=== PATIENT | female | born 2000 | race Caucasian/White ===

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

== ENCOUNTER 2019-01-06 09:27 | Day surgery (SDC) | payer OTHER ==
[~2019-01-06] VITALS: Ht 149.9 cm; Wt 54.4 kg
[2019-01-06] MEDS ORDERED: MIDAZOLAM 2 MG/2 ML VIAL ONE ×3 (10:36→11:16)
[2019-01-06] MEDS ORDERED: fentaNYL 0.05 MG/ML VIAL ONE (10:36)
[2019-01-06] MEDS ORDERED: MIDAZOLAM 2 MG/2 ML VIAL IVP ONE (13:40)
== END 2019-01-06 12:25 | disposition home or self-care (01) ==
LOC: MDS 09:27 → MMU 09:28 → MDS 12:25
PROVIDERS: ATTEND Internal Medicine Gastroenterology
DX: K21.0 Gastro-esophageal reflux disease with esophagitis (principal); K44.9 Diaphragmatic hernia without obstruction or gangrene; K31.89 Other diseases of stomach and duodenum; Z87.440 Personal history of urinary (tract) infections; Z87.442 Personal history of urinary calculi
CPT/HCPCS: 43235; 81025; J2250; J7030; J3010

== ENCOUNTER 2019-02-08 05:45 | Emergency (ER) | payer OTHER ==
[~2019-02-08] VITALS: Ht 144.8 cm; Wt 54.4 kg
[2019-02-08 05:55] VITALS: BP 116/59
--- NOTE | 2019-02-08 05:55 | NUR ---
PT TAKEN TO BED 8
--- NOTE | 2019-02-08 06:00 | NUR ---
PT BIB SELF C/O NAUSEA/VOMITING X4 DAYS; SHARP ABDOMINAL PAIN, 10/10; +TENDERNESS UPON PALPATION THROUGH OUT ABD; +APPETITE CHANGES; ACTIVE BOWEL SOUNDS THROUGH OUT. PT VOMITED 1 TIME IN LOBBY. PT IN GOWN; IN BED, BED IN LOWER LOCKED POSITION, BEDRAILS UP X1. PENDING ERMD EVAL. PMH: DENIES
--- NOTE | 2019-02-08 06:05 | NUR ---
DR. YOUSIF AT BEDSIDE.
[2019-02-08] MEDS ORDERED: ONDANSETRON 4 MG/2 ML VIAL IVP ONE (06:15)
[2019-02-08] MEDS ORDERED: KETOROLAC 30 MG/ML VIAL IVP ONE (06:15)
[2019-02-08] MEDS ORDERED: NACL 0.9% 1,000 ML IV ONE ×2 (06:15→08:05)
--- NOTE | 2019-02-08 06:20 | NUR ---
IV START: L AC 20G, FLUSHED WELL W/O RESISTANCE, NO SWELLING, REDNESS OR NOTED PAIN BY PT. PT TOLERATED WELL. --LABS DRAWN BY RN AT TIME OF IV START, AND SENT W/ DOG SITTER.
[2019-02-08 06:32] LABS: BASOPHILS % (AUTO) 0.4 % (0.0-2.0); EOSINOPHILS # (AUTO) 0.1 K/uL (0-0.4); EOSINOPHILS % (AUTO) 0.9 % (0.0-4.0); HEMATOCRIT 37.9 % (36-48); HEMOGLOBIN 12.6 g/dL (12.0-16.0); LYMPHOCYTES # (AUTO) 2.1 K/uL (2.5-16.5); LYMPHOCYTES % (AUTO) 18.1 % (20.5-51.1); MEAN CORPUSCULAR HEMOGLOBIN 31 pg (27-31); MEAN CORPUSCULAR HGB CONC 33 g/dL (33-37); MEAN CORPUSCULAR VOLUME 91.9 fL (80-94); MONOCYTES # (AUTO) 0.8 K/uL (0.8-1.0); MONOCYTES % (AUTO) 6.9 % (1.7-9.3); NEUTROPHILS # (AUTO) 8.7 K/uL (1.8-7.7); NEUTROPHILS % (AUTO) 73.7 % (42.2-75.2); PLATELET COUNT (AUTO) 246 K/uL (140-450); RED BLOOD CELL COUNT(AUTO) 4.12 MIL/uL (4.20-5.40); RED CELL DISTRIBUTION WIDTH 14.7 % (11.6-13.7); WHITE BLOOD COUNT (AUTO) 11.8 K/uL (4.5-11.0)
--- NOTE | 2019-02-08 06:35 | NUR ---
Ultrasound at bedside.
[2019-02-08 06:55] LABS: ANION GAP 15.6 (8-16); CARBON DIOXIDE 24.1 mmol/L (21-32); CREATININE 0.8 mg/dL (0.6-1.3); POTASSIUM 3.7 mmol/L (3.5-5.1); TOTAL BILIRUBIN 0.8 mg/dL (0.0-1.0)
--- NOTE | 2019-02-08 07:18 | NUR ---
PT UP FOR D/C PT BP 86/45, ERMD AWARE. HOLD AND MONITOR PT AT THIS TIME.
--- NOTE | 2019-02-08 07:31 | NUR ---
REPORT RECIEVED FROM MADDIE BHARDWAJ. PT BP 88/42. WILL CONTINUE TO MONITOR PT BP PER DR PENALOZA.
--- NOTE | 2019-02-08 07:45 | NUR ---
PT BP CONTINUES TO BE LOW. BP NOW 83/49. DR JARA AT RAPID RESPONSE, STARTED PT ON 1 L NS.
--- NOTE | 2019-02-08 08:03 | NUR ---
BP NOW 94/55
[2019-02-08 08:12] VITALS: BP 104/61
--- NOTE | 2019-02-08 08:12 | NUR ---
BP ON DISCHARGE 104/61
[2019-02-08 08:29] LABS: APPEARANCE,URINE YELLOW (CLEAR); COLOR,URINE CLEAR (YELLOW)
[2019-02-08 08:30] LABS: BILIRUBIN,URINE NEGATIVE (NEGATIVE); BLOOD, URINE 1+ (NEGATIVE); LEUKOCYTE ESTERASE ,URINE NEGATIVE (NEGATIVE); NITRITE, URINE NEGATIVE (NEGATIVE); UGLUCOSE NEGATIVE (NEGATIVE)
[2019-02-08 08:43] LABS: WBC,URINE 0-5 /HPF (0-5)
== END 2019-02-08 08:12 | disposition home or self-care (01) ==
LOC: MED 05:45
DX: K29.70 Gastritis, unspecified, without bleeding (principal); K21.9 Gastro-esophageal reflux disease without esophagitis
CPT/HCPCS: 36415; 76705; 80053; 81001; 81025; 83690; 85025; 96361; 96374; 96375; 99284; J1885; J2405; J7030; Q0092

== ENCOUNTER 2019-05-01 13:29 | Emergency (ER) | payer OTHER ==
[~2019-05-01] VITALS: Ht 144.8 cm; Wt 53.2 kg
[2019-05-01 13:47] VITALS: BP 126/59
[2019-05-01] MEDS ORDERED: ONDANSETRON 4 MG/2 ML VIAL IVP ONE (14:20)
[2019-05-01] MEDS ORDERED: NACL 0.9% 1,000 ML IV SCH (14:39)
[2019-05-01] MEDS ORDERED: MORPHINE SULFATE 2 MG/ML SYR IVP ONE (14:40)
[2019-05-01 15:05] LABS: BASOPHILS % (AUTO) 0.2 % (0.0-2.0); EOSINOPHILS % (AUTO) 0.2 % (0.0-4.0); HEMATOCRIT 40.1 % (36-48); HEMOGLOBIN 13.5 g/dL (12.0-16.0); LYMPHOCYTES # (AUTO) 0.9 K/uL (2.5-16.5); LYMPHOCYTES % (AUTO) 9.4 % (20.5-51.1); MEAN CORPUSCULAR HEMOGLOBIN 31 pg (27-31); MEAN CORPUSCULAR HGB CONC 34 g/dL (33-37); MEAN CORPUSCULAR VOLUME 91.2 fL (80-94); MONOCYTES # (AUTO) 0.5 K/uL (0.8-1.0); MONOCYTES % (AUTO) 4.8 % (1.7-9.3); NEUTROPHILS # (AUTO) 8.5 K/uL (1.8-7.7); NEUTROPHILS % (AUTO) 85.4 % (42.2-75.2); PLATELET COUNT (AUTO) 304 K/uL (140-450); RED CELL DISTRIBUTION WIDTH 13.8 % (11.6-13.7)
[2019-05-01 15:23] LABS: ANION GAP 18.7 (8-16); CARBON DIOXIDE 19.6 mmol/L (21-32); CREATININE 0.8 mg/dL (0.6-1.3); POTASSIUM 3.3 mmol/L (3.5-5.1)
[2019-05-01 15:44] LABS: TOTAL BILIRUBIN 1.2 mg/dL (0.0-1.0)
[2019-05-01] MEDS ORDERED: MORPHINE SULFATE 4 MG/ML SYR IVP ONE (16:00)
[2019-05-01 17:25] LABS: APPEARANCE,URINE CLEAR (CLEAR); BILIRUBIN,URINE NEGATIVE (NEGATIVE); BLOOD, URINE NEGATIVE (NEGATIVE); COLOR,URINE YELLOW (YELLOW); LEUKOCYTE ESTERASE ,URINE NEGATIVE (NEGATIVE); NITRITE, URINE NEGATIVE (NEGATIVE); PH,URINE 7.5 (5.0-9.0); UGLUCOSE NEGATIVE (NEGATIVE)
[2019-05-01 17:39] LABS: RBC,URINE 0-5 /HPF (0-5); WBC,URINE 0-5 /HPF (0-5)
[2019-05-01 17:59] VITALS: BP 103/46
== END 2019-05-01 17:59 | disposition home or self-care (01) ==
LOC: MED 13:29
DX: O21.8 Other vomiting complicating pregnancy (principal); O26.891 Other specified pregnancy related conditions, first trimester; R10.13 Epigastric pain; O23.41 Unspecified infection of urinary tract in pregnancy, first trimester; R82.71 Bacteriuria; O99.611 Diseases of the digestive system complicating pregnancy, first trimester; K21.9 Gastro-esophageal reflux disease without esophagitis; Z3A.01 Less than 8 weeks gestation of pregnancy
CPT/HCPCS: 36415; 76705; 76801; 80053; 81001; 81025; 82150; 83690; 84702; 85025; 87086; 96361; 96374; 96375; 96376; 99284; J2270; J2405; J7030; Q0092

== ENCOUNTER 2019-11-09 05:52 | Emergency (ER) | payer OTHER ==
[~2019-11-09] VITALS: Ht 147.3 cm; Wt 54.4 kg
[2019-11-09 05:58] VITALS: BP 118/64
--- NOTE | 2019-11-09 05:58 | NUR ---
PT TAKEN TO BED 5
--- NOTE | 2019-11-09 06:02 | NUR ---
Dr. Wild examining patient.
--- NOTE | 2019-11-09 06:12 | NUR ---
BIB SELF REPORTS VAGINAL PAIN THAT STARTED YESTERDAY AT NOON YESTERDAY. STATES SHE DEVELOPED A RED RASH WITH BURNING AND ITCHING. UPON OBSERVATION LABIA RED AND INFLAMMED. NO OTHER SYMPOTMS REPORTED.
[2019-11-09 06:28] VITALS: BP 118/64
--- NOTE | 2019-11-09 06:29 | NUR ---
Patient discharged with v/s stable. Written and verbal after care instructions given and explained. Patient alert, oriented and verbalized understanding of instructions. Ambulatory with steady gait. All questions addressed prior to discharge. ID band removed. Patient advised to follow up with PMD. Rx of DIFLUCAN, KEFLEX, BACITRACIN given. Patient educated on indication of medication including possible reaction and side effects. Opportunity to ask questions provided and answered.
== END 2019-11-09 06:29 | disposition home or self-care (01) ==
LOC: MED 05:52
DX: R30.0 Dysuria (principal); L30.9 Dermatitis, unspecified; N89.8 Other specified noninflammatory disorders of vagina; R11.2 Nausea with vomiting, unspecified; K21.9 Gastro-esophageal reflux disease without esophagitis
CPT/HCPCS: 81002; 81025; 99283

== ENCOUNTER 2020-08-24 16:42 | Emergency (ER) | payer OTHER ==
[~2020-08-24] VITALS: Ht 149.9 cm; Wt 59.0 kg
[2020-08-24 18:27] VITALS: BP 114/73
--- NOTE | 2020-08-24 18:30 | NUR ---
NO NEED NURSING CARE.
--- NOTE | 2020-08-24 18:32 | NUR ---
Patient discharged with v/s stable. Written and verbal after care instructions given and explained. Patient alert, oriented and verbalized understanding of instructions. Ambulatory with steady gait. All questions addressed prior to discharge. ID band removed. Patient advised to follow up with PMD. Rx of IBUPROFEN & CEFTIN given. Patient educated on indication of medication including possible reaction and side effects. Opportunity to ask questions provided and answered.
== END 2020-08-24 18:32 | disposition home or self-care (01) ==
LOC: MED 16:42
DX: J02.9 Acute pharyngitis, unspecified (principal); K21.9 Gastro-esophageal reflux disease without esophagitis
CPT/HCPCS: 99283

== ENCOUNTER 2022-02-01 07:55 | Emergency (ER) | payer OTHER ==
[~2022-02-01] VITALS: Ht 149.9 cm; Wt 59.9 kg
[2022-02-01 07:58] VITALS: BP 127/86
--- NOTE | 2022-02-01 08:15 | NUR ---
AT PT BEDSIDE
--- NOTE | 2022-02-01 08:20 | NUR ---
21 Y/O FEMALE C/O SORE THROAT AND SWOLLEN TONSILS X2 DAYS. PT DENIES ANY SICK HOUSEHOLD MEMBERS. DENIES COUGH, FEVERS, DENIES SOB. PT TAKING MEDICATION PRIOR TO ARRIVAL. PMH: DENIES NKA
--- NOTE | 2022-02-01 08:26 | NUR ---
STREP/ RESPIRATORY PANEL SWABS COLLECTED AND WALKED TO LAB
[2022-02-01] MEDS ORDERED: DEXAMETHASONE 10 MG/ML VIAL IM ONE (09:10)
[2022-02-01] MEDS ORDERED: PENI500T20 PO (09:10)
[2022-02-01 10:02] VITALS: BP 110/78
--- NOTE | 2022-02-01 10:03 | NUR ---
Patient discharged with v/s stable. Written and verbal after care instructions given and explained. Patient alert, oriented and verbalized understanding of instructions. Ambulatory with steady gait. All questions addressed prior to discharge. ID band removed. Patient advised to follow up with PMD. Rx of PENICILLIN V POTASSIUM given. Patient educated on indication of medication including possible reaction and side effects. Opportunity to ask questions provided and answered.
[2022-02-02] MEDS ORDERED: PENI500T20 PO (18:07)
== END 2022-02-01 10:03 | disposition home or self-care (01) ==
LOC: MED 07:55
DX: J02.0 Streptococcal pharyngitis (principal); Z20.822 Contact with and (suspected) exposure to COVID-19; H92.03 Otalgia, bilateral; K21.9 Gastro-esophageal reflux disease without esophagitis
CPT/HCPCS: 87081; 87635; 96372; 99283; C9803; J1100

== ENCOUNTER 2022-07-12 10:19 | Emergency (ER) | payer OTHER ==
[~2022-07-12] VITALS: Ht 149.9 cm; Wt 53.3 kg
[~2022-07-12 10:19] MED LIST: PENI500T20 PO
[2022-07-12 10:24] VITALS: BP 126/79
--- NOTE | 2022-07-12 10:40 | NUR ---
BIB SELF C/O RUNNY NOSE X TODAY AND C/O 10/10 THROAT PAIN , NAUSEA S/P TONSILLECTOMY X 3 DAYS.
--- NOTE | 2022-07-12 11:40 | NUR ---
PATIENT AMBULATED TO BED 6.
--- NOTE | 2022-07-12 12:04 | NUR ---
NORA PIERCE EVALUATING PATIENT AT BEDSIDE.
[2022-07-12] MEDS ORDERED: DEXAMETHASONE 10 MG/ML VIAL IVP ONE (12:15)
[2022-07-12] MEDS ORDERED: AMPICILLIN/SULBACTAM 3 GM VIAL IM ONE (12:15)
[2022-07-12] MEDS ORDERED: NACL 0.9% 1,000 ML IV ONE (12:15)
[2022-07-12] MEDS ORDERED: MORPHINE SULFATE 4 MG/ML SYR IVP ONE (12:15)
[2022-07-12] MEDS ORDERED: ONDANSETRON 4 MG/2 ML VIAL IVP ONE (12:15)
--- NOTE | 2022-07-12 12:32 | NUR ---
IV STARTED BLOODWORK OBTAINED, HANDED TO CPT AT BEDSIDE.
[2022-07-12] MEDS ORDERED: WATER STERILE 10 ML MC ONE (12:43)
[2022-07-12] MEDS ORDERED: AMPICILLIN/SULBACTAM 3 GM in NACL 0.9% 100 ML IV ONE (12:50)
[2022-07-12 13:37] LABS: BASOPHILS % (AUTO) 0.3 % (0.0-2.0); EOSINOPHILS # (AUTO) 0.1 K/uL (0-0.4); EOSINOPHILS % (AUTO) 0.6 % (0.0-4.0); HEMATOCRIT 39.5 % (36-48); LYMPHOCYTES # (AUTO) 1.4 K/uL (2.5-16.5); LYMPHOCYTES % (AUTO) 10.4 % (20.5-51.1); MEAN CORPUSCULAR HEMOGLOBIN 30 pg (27-31); MEAN CORPUSCULAR HGB CONC 33 g/dL (33-37); MEAN CORPUSCULAR VOLUME 91.5 fL (80-94); MONOCYTES # (AUTO) 1.7 K/uL (0.8-1.0); MONOCYTES % (AUTO) 12.4 % (1.7-9.3); NEUTROPHILS # (AUTO) 10.2 K/uL (1.8-7.7); NEUTROPHILS % (AUTO) 76.3 % (42.2-75.2); PLATELET COUNT (AUTO) 303 K/uL (140-450); RED BLOOD CELL COUNT(AUTO) 4.32 MIL/uL (4.20-5.40); RED CELL DISTRIBUTION WIDTH 14.6 % (11.6-13.7); WHITE BLOOD COUNT (AUTO) 13.3 K/uL (4.8-10.8)
[2022-07-12 14:06] LABS: ALBUMIN 3.6 g/dL (3.4-5.0); ANION GAP 12.1 (8-16); CARBON DIOXIDE 27.6 mmol/L (21-32); CREATININE 0.8 mg/dL (0.6-1.3); POTASSIUM 3.7 mmol/L (3.5-5.1); TOTAL BILIRUBIN 0.8 mg/dL (0.0-1.0)
[2022-07-12] MEDS ORDERED: IBUP-2213 PO (14:27)
[2022-07-12] MEDS ORDERED: AMOX-999 PO (14:27)
[2022-07-12 15:15] VITALS: BP 118/61
--- NOTE | 2022-07-12 15:18 | NUR ---
Patient discharged with v/s stable. Written and verbal after care instructions given and explained. Patient alert, oriented and verbalized understanding of instructions. Ambulatory with steady gait to car. All questions addressed prior to discharge. ID band removed. Patient advised to follow up with PMD. Rx of augmentin, ibuprofen (sent) given. Patient educated on indication of medication including possible reaction and side effects. Opportunity to ask questions provided and answered.
--- NOTE | 2022-07-12 15:21 | NUR ---
The patient's care was reviewed and supervised by Leidy Chandler, RN, RN.
== END 2022-07-12 15:15 | disposition home or self-care (01) ==
LOC: MED 10:19
DX: J02.9 Acute pharyngitis, unspecified (principal); R05.9 Cough, unspecified; Z90.49 Acquired absence of other specified parts of digestive tract; Z79.899 Other long term (current) drug therapy
CPT/HCPCS: 36415; 70490; 80053; 85025; 96361; 96365; 96375; 99284; J0295; J1100; J2270; J2405; J7030